=== PATIENT | female | born 1975 | race Caucasian/White ===

== ENCOUNTER 2019-04-23 16:58 | Emergency (ER) | payer OTHER, MEDICAID ==
[~2019-04-23] VITALS: Ht 154.9 cm; Wt 63.5 kg
[2019-04-23] MEDS ORDERED: IBUPROFEN 800800 M1 PO (18:01)
[2019-04-23 18:17] VITALS: BP 152/94
== END 2019-04-23 18:19 | disposition home or self-care (01) ==
LOC: M.ERS 16:58
DX: S61.512A Laceration without foreign body of left wrist, initial encounter (principal); Z88.6 Allergy status to analgesic agent; Z88.5 Allergy status to narcotic agent; W26.8XXA Contact with other sharp object(s), not elsewhere classified, initial encounter; Y93.89 Activity, other specified; Y92.89 Other specified places as the place of occurrence of the external cause; Y99.8 Other external cause status